=== PATIENT | female | born 1955 | race Caucasian/White ===

== ENCOUNTER → 2024-04-23 07:07 | Outpatient (REF) | payer MEDICARE, OTHER, SELFPAY ==
[2024-04-23 09:29] LABS: Hematocrit 40.4 % (37.0-47.0); Hemoglobin 13.7 g/dL (12.0-16.0); Mean Corp Hgb Conc. 33.9 g/dL (33.0-37.0); Mean Corpuscular Hgb 29.6 pg (27.0-31.0); Mean Corpuscular Volume 87.3 fL (81.0-99.0); Mean Platelet Volume 10.1 fL (7.4-10.4); Platelet Count 259 10^3/uL (130-400); Red Blood Cell Count 4.63 10^6/uL (4.20-5.40); Red Cell Dist. Width 12.8 % (11.5-14.5); White Blood Cell Count 6.8 10^3/uL (4.8-10.8)
[2024-04-23 10:24] LABS: Blood Urea Nitrogen 17 mg/dl (7-17); Calcium 10.3 mg/dl (8.4-10.2); Carbon Dioxide 29 mmol/L (22-30); Chloride 98 mmol/L (98-107); Glucose 142 mg/dl (70-99); Potassium 4.7 mmol/L (3.5-5.1); Sodium 138 mmol/L (135-145); eGFR > 60.00
== END ==
LOC: SDSPAT 07:07
PROVIDERS: ATTENDING PHYSICIAN Obstetrics & Gynecology; FAMILY PHYSICIAN Family Medicine
DX: Z01.818 Encounter for other preprocedural examination (principal)
CPT/HCPCS: 36415; 80048; 85027; 86850; 86900; 86901; 93005

== ENCOUNTER 2024-05-06 06:29 | Day surgery (SDC) | payer MEDICARE, OTHER, SELFPAY ==
[2024-04-23 07:25] VITALS: BMI 31.3
[2024-05-06] VITALS (11 sets, daily range): BP systolic 106–147; BP diastolic 56–97; BMI 31.3
[2024-05-06] MEDS: TRANSDERM-SCOP 1 PATCH TRANSDERM (10:18)
[2024-05-06] MEDS: HEPARIN 5000 UNITS SC (10:21)
[2024-05-06] MEDS: Pyridium 200 MG PO (10:21)
[2024-05-06] MEDS: NORMOSOL-R 1000 IV (10:43)
--- NOTE | 2024-05-06 16:56 | OR.RPT ---
Operative Report
Operative Report
PREOPERATIVE DIAGNOSIS:
1. Pelvic organ prolapse
2. Stress urinary incontinence
POSTOPERATIVE DIAGNOSIS:
1. Pelvic organ prolapse
2. Stress urinary incontinence
PROCEDURE:
1. Robotic assisted laparoscopic total hysterectomy and bilateral salpingo-oophrectomy
2. Robotic assisted laparoscopic sacrocolpopexy
3. Single incision midurethral sling
4. Posterior colporrhaphy
5. Cystoscopy
ASSISTANTS: OSCAR Mata
The assistance of OSCAR Mata was required due to the complexity of the procedure. During the procedure Gloria Montoya assisted with retraction, resection, and closure of the wound.
EBL: 100 cc
COMPLICATIONS: None
SPECIMENS: Uterus, cervix, bilateral ovaries and tubes
INDICATIONS: Patient has symptomatic pelvic organ prolapse and urinary incontinence. Options were reviewed with the patient, who decided to proceed with surgery.� Preoperative urodynamics revealed stress urinary incontinence with urethral
hypermobility.� The risks of surgery were reviewed, including the risk of bleeding, infection, damage to surrounding organs including bowel, bladder, ureter, urethra, nerves, blood vessels, mesh complications, post-operative urinary retention and
urinary incontinence. The risk of anesthesia was also reviewed.� The patient expressed understanding and informed consent was obtained.
FINDINGS: Laparoscopic findings include adnexa were within normal limits bilaterally. Cystoscopic findings include normal bladder mucosa, no cystotomy, suture, mesh, lacerations or lesions.� Normal efflux of urine from bilateral ureteral openings.
Normal urethra.
DESCRIPTION OF PROCEDURE:
On day of surgery, patient properly identified in preoperative waiting area and informed consent of planned procedure again reviewed.� She was then taken to the operating room.� Sequential compression devices were placed on bilateral lower
extremities and 5,000 units of subcutaneous heparin were given for DVT prophylaxis.� General anesthesia was induced without difficulty.�Gentamicin 100mg and Flagyl 500 mg IV was given for antibiotic prophylaxis.� The patient was placed in dorsal
lithotomy position with Alex stirrups and prepped and draped in the usual sterile fashion.� Surgical time-out was performed to review patient and procedure.
Attention was turned to the patient�s vagina.� Ortiz catheter was placed to gravity. The uterine manipulator was not placed. The patient had cervical stenosis her cervical os was unable to be dilated. Therefore, the vaginal manipulator was placed.
Attention turned to the patient�s abdomen.� The patient was confirmed to have an OG tube in place on suction for gastric decompression.� A midline 8 mm transverse midline supraumbilical incision was made with the scalpel approximately 20 cm above
the symphysis.� The Veress needle was passed through this incision while tenting up the abdominal wall.� Intraperitoneal placement was confirmed by opening insufflation pressure of 0 mmHg.� The abdomen was insufflated to a pressure of 15 mmHg with
approximately 3L CO2 gas to obtain adequate pneumoperitoneum.� A 8 mm robotic trocar was advanced through this incision and abdominal entry confirmed.� No injuries noted.� Next, the remaining port sites were marked, injected superficially with local
anesthetic, and skin incised with the scalpel.� These sites included two 8 mm robotic ports on the patient's left and one 8mm robotic and one 8 mm accessory port on the patient's right.� All ports were placed under direct visualization without
difficulty.� The patient was placed in [place] position however the operating room table manfunctioned and was not able to be placed in [place]. The ports were removed and the patiend was transferred to a properly functioning bed. The
patient was re-prepped and draped in the dorsal lithotomy position. The patient was placed in [place]. The robot was docked using the left side-docking technique.� The robotic arms were attached to the ports and instruments placed without
difficulty.�
The robotic assisted laparoscopic totall hysterectomy and bilateral salpingo-oophrectomy were performed as follows.� Starting at the patient�s left, the round ligament, uteroovarian pedicle, and fallopian tube were cauterized with bipolar cautery,
and then transected with monopolar scissors.� The anterior leaf of the broad ligament was opened, and the dissection was carried inferiorly and anterior around the cervix to create the bladder flap.� This process was repeated on the right in a
similar fashion.� The vesico-uterine peritoneum was further opened and the bladder dissected down off the anterior cervix and vagina with sharp and blunt dissection.� Returning to the left, the posterior leaf of the broad ligament was dissected
laterally down the side of the uterus.� The uterine arteries were skeletonized, cauterized, and transected.� Further sequential bites were taken down the side of the uterus to reach the level of the external cervical os.� This process was repeated
on the right.� The bladder was further dissected anteriorly off the vagina.� Colpotomy was made in the posterior vaginal fornix. This was carried around anteriorly. The uterus and cervix were removed through the vaigna. Attention was turned to the
patient�s adnexa and the bilateral salpingo-oophrectomy was performed as follows.� The left IP ligament was identified and isolated with the ureter noted well below the level of planned dissection.� The IP ligament was cauterized with bipolar
electrocautery and transected with monopolar scissors.� The left tube and ovary were then dissected free in sequential bites and then removed through the vagina.� The same procedure was done for the patient�s right tube and ovary.� #2-0 Vicryl was
used to close the vaginal cufe in figure of eight sutures. A second layer of #2-0 V-Lock was used to ensure an adequate closure. Hemostasis was maintained
The robotic assisted laparoscopic abdominal sacrocolpopexy was performed as follows:� The bladder was dissected anteriorly off the vagina to allow for mesh placement.�The posterior peritoneum was entered sharply and the rectum dissected posteriorly
off the vagina.� The posterior peritoneum was continued to be opened through the cul-de-sac.� Next the sacrum was exposed after retracting bowel gently away.� The peritoneum overlying the sacral was tented up and entered sharply.� The presacral
space area was opened op and dissection carried down to expose and clear off the anterior longitudinal ligament at the level of the sacrum.� This peritoneum incision was carried inferiorly to join the peritoneal incision of the posterior
cul-de-sac.� Hemostasis was noted.��� The polypropylene Y mesh was introduced through the accessory port and positioned over the cervix.� The anterior arm of the Y mesh was sutured to the anterior cervix and vagina with approximately seven #2-0
Gortex sutures.� The posterior arm of the Y mesh was sutured to the posterior cervix and vagina with seven #2-0 Gortex sutures.� The tail of the Y mesh was attached to the anterior longitudinal ligament at the level of the sacrum with three #2-0
Gortex sutures.� The vagina was noted to be elevated but not under tension.� Hemostasis was noted.� The excess mesh was trimmed and removed.� The peritoneum was reapproximated to cover the mesh. The pelvis was reexamined and hemostasis was noted
throughout.�
The robot was undocked. CO2 was released and ports removed under direct visualization.� Skin was closed with 4-0 Biosyn for the subcuticular layer.� All abdominal incisions were then closed with skin glue.�
The single incision midurethral sling was performed as follows: Two Allis clamps were placed on the anterior vaginal mucosa at the level of the bladder neck and 1 cm from the urethral meatus. This area was infiltrated with 1% lidocaine with
1:100,000 epinephrine. A midline incision was made between the two Allis clamps using a scalpel. The vaginal mucosa was dissected from the underlying pubocervical fascia using Metzenbaum, out to the level of the inferior pubic rami bilaterally. The
Solyx sling trocar was brought onto the field. The right trocar was placed in the right vaginal dissection below the inferior pubic rami, passed behind and around the pubic bone into the obturator muscle and the trochar was depolyed. This was
repeated on the left side. Adequate tension was confirmed. Ortiz catheter was removed and Cystoscopy was performed. Findings were as above. The cystoscope was removed and Ortiz catheter replaced. The vaginal incision was closed with 2-0 Vicryl in a
running continuous fashion.
The posterior repair was performed as follows: The posterior vaginal mucosa and perineum skin were infiltrated with 1% lidocaine with 1:100,000 epinephrine. The posterior vaginal mucosa was then opened up in the midline, going from the introitus
toward the apex using Metzenbaum scissors.� The posterior vaginal mucosa was then dissected off the underlying rectovaginal fascia bilaterally out to the level of the lateral sulci.� The apical edge of the rectovaginal fascia was identified and used
plicate in the midline with interrupted stitches of #2-0 PDS. Excess vaginal mucosa was trimmed.� The vaginal mucosa and perineum skin were reapproximated with 2-0 Vicryl in a running continuous fashion.� Rectal exam revealed no stitches.�
Anesthesia was reversed without difficulty.� The patient tolerated the procedure well, was awakened and sent to the PACU in stable condition. All counts were correct x 2. I, Dr. Lynne was scrubbed and present throughout the procedure
== END 2024-05-06 20:20 | disposition home or self-care (01) ==
LOC: SDS 06:29
PROVIDERS: ATTENDING PHYSICIAN Obstetrics & Gynecology; FAMILY PHYSICIAN Family Medicine
DX: N81.4 Uterovaginal prolapse, unspecified (principal); N39.3 Stress incontinence (female) (male); N36.41 Hypermobility of urethra
CPT/HCPCS: 57425; 58571; 57288; 57250; 88305; 88307; 86900; 86901; 87070; C1763; C1771; J1580

== ENCOUNTER → 2024-06-26 17:21 | Outpatient (REF) | payer MEDICARE, OTHER, SELFPAY | LOC: RAD 17:21 | PROVIDERS: ATTENDING PHYSICIAN Family Medicine | DX: N28.1 Cyst of kidney, acquired (principal) | CPT/HCPCS: 76775 ==

== ENCOUNTER → 2024-08-27 14:31 | Outpatient (REF) | payer MEDICARE, OTHER, SELFPAY | LOC: WDC 14:31 | PROVIDERS: ATTENDING PHYSICIAN Obstetrics & Gynecology | DX: Z12.31 Encounter for screening mammogram for malignant neoplasm of breast (principal) | CPT/HCPCS: 77063; 77067 ==

== ENCOUNTER → 2024-09-22 09:30 | Outpatient (REF) | payer MEDICARE, OTHER, SELFPAY | LOC: HWRAD 09:30 | PROVIDERS: ATTENDING PHYSICIAN Internal Medicine Rheumatology; FAMILY PHYSICIAN Family Medicine | DX: M81.0 Age-related osteoporosis without current pathological fracture (principal) | CPT/HCPCS: 77080 ==

== ENCOUNTER → 2024-09-29 12:27 | Outpatient (REF) | payer MEDICARE, OTHER, SELFPAY | LOC: RAD 12:27 | PROVIDERS: ATTENDING PHYSICIAN Obstetrics & Gynecology; FAMILY PHYSICIAN Family Medicine | DX: R10.9 Unspecified abdominal pain (principal); K43.9 Ventral hernia without obstruction or gangrene | CPT/HCPCS: 74177; Q9967 ==

== ENCOUNTER → 2025-02-10 12:44 | Outpatient (REF) | payer MEDICARE, OTHER, SELFPAY | LOC: RAD 12:44 | PROVIDERS: ATTENDING PHYSICIAN Family Medicine | DX: M25.531 Pain in right wrist (principal); M65.4 Radial styloid tenosynovitis [de Quervain] | CPT/HCPCS: 73140 ==

== ENCOUNTER → 2025-05-01 13:32 | Outpatient (REF) | payer MEDICARE, OTHER, SELFPAY | LOC: HWRAD 13:32 | PROVIDERS: ATTENDING PHYSICIAN Family Medicine; FAMILY PHYSICIAN Family Medicine | DX: R05.3 Chronic cough (principal) | CPT/HCPCS: 71250 ==

== ENCOUNTER → 2025-07-29 12:50 | Outpatient (REF) | payer MEDICARE, OTHER, SELFPAY | LOC: HWRAD 12:50 | PROVIDERS: ATTENDING PHYSICIAN Family Medicine; FAMILY PHYSICIAN Family Medicine | DX: R22.31 Localized swelling, mass and lump, right upper limb (principal) | CPT/HCPCS: 76882 ==